=== PATIENT | male | born 1975 | race Caucasian/White ===

== ENCOUNTER 2017-09-30 17:41 | Emergency (ER) | payer BC ==
[~2017-09-30] VITALS: Ht 172.7 cm; Wt 72.6 kg
--- NOTE | 2017-09-30 17:41 | NUR ---
Patient to ER bed 07 for evaluation. Side rails up. Report given to Storm.
--- NOTE | 2017-09-30 17:43 | NUR ---
Pt complains of left eye pain for 3 hours. Pt states he was working on the house, took off his sun glasses, and felt something in his left eye. Per pt, he irrigated eye at home, and pulled top eye lid down, but still feels as if something is moving around in eye. Pt denies N/V. No other injuries/complaints per patient or noted.
[2017-09-30 17:44] VITALS: BP_SYST 117
--- NOTE | 2017-09-30 17:46 | NUR ---
ER REINALDO Womack at bedside examining patient.
--- NOTE | 2017-09-30 17:46 | NUR ---
Melissa davis in ED - 09/30/17 at 1752 by [email or web address] NATANAEL Arreaga at bedside examining patient.
[2017-09-30 18:35] VITALS: BP_SYST 117
--- NOTE | 2017-09-30 18:35 | NUR ---
Patient given written and verbal discharge instructions and verbalizes understanding. ER MD discussed with patient the results and treatment provided. Patient in stable condition. ID arm band removed. Rx of Motrin, Erythromycin Ophthalmic Ointment, and [place] given. Patient educated on pain management and to follow up with PMD. Pain Scale 3. RISK PROFESSIONAL Vicki Womack aware, medication prescription for home. Opportunity for questions provided and answered. Medication side effect fact sheet provided.
== END 2017-09-30 18:35 | disposition home or self-care (01) ==
LOC: SED 17:41
DX: S05.02XA Injury of conjunctiva and corneal abrasion without foreign body, left eye, initial encounter (principal); R03.0 Elevated blood-pressure reading, without diagnosis of hypertension; W22.8XXA Striking against or struck by other objects, initial encounter; Y93.89 Activity, other specified; Y92.096 Garden or yard of other non-institutional residence as the place of occurrence of the external cause; Y99.8 Other external cause status
CPT/HCPCS: 99283

== ENCOUNTER 2018-05-18 20:36 | Emergency (ER) | payer BC ==
[~2018-05-18] VITALS: Ht 170.2 cm; Wt 81.6 kg
[2018-05-18 21:16] VITALS: BP_SYST 119
[2018-05-18 22:26] VITALS: BP_SYST 119
== END 2018-05-18 22:26 | disposition home or self-care (01) ==
LOC: SED 20:36
DX: S90.32XA Contusion of left foot, initial encounter (principal); W22.8XXA Striking against or struck by other objects, initial encounter; Y93.89 Activity, other specified; Y92.89 Other specified places as the place of occurrence of the external cause; Y99.8 Other external cause status
CPT/HCPCS: 99283